=== PATIENT | male | born 1955 | race Caucasian/White ===

== ENCOUNTER 2020-11-05 21:46 | Emergency (ER) | payer MEDICARE, MEDICAID ==
[2020-11-05] MEDS ORDERED: Azithromycin 250 MG Tab PO ONE (21:47)
--- NOTE | 2020-11-05 22:19 | EDM.PDOC ---
ED HPI GENERAL MEDICAL PROBLEM - General Chief Complaint: Respiratory Problem Stated Complaint: COVID Time Seen by Provider: 11/05/20 22:10 Source of Information: Reports: Patient History Limitations: Reports: No Limitations - History of Present Illness INITIAL COMMENTS - FREE TEXT/NARRATIVE: 64-year-old male presents to the emergency department via private vehicle known diagnosis of COVID 19 secondary to being told by the nurse line to come in for evaluation. The patient reports that he developed symptoms initially approximately one week ago and was diagnosed with COVID 19 with positive test 3 days ago through [facility]. He received the [facility] antibiotic therapy yesterday. He reports that his initial symptoms were nasal congestion, mild cough, loss of taste and smell and generalized malaise with body aches and fever. He has persisted with these symptoms but he states that today he regained his sense of taste and smell and he had not really been eating that well but he ate better today than he has been. He has been taking liquids well. He has had no nausea or vomiting. He did have diarrhea during the initial portion of this illness but he has had no diarrhea for the past 3 days. He has had no weakness or dizziness. He denies any chest pain. He does report that over the past 2 days he has had increased difficulty breathing with activity. He also had a fever of 101F at home tonight. He denies any pain at present. He rates his pain as a 0/10. There are no other associated signs or symptoms. There are no other modifying factors. Onset: Other (Initial symptoms began one week ago. Increased difficulty breathing with activity began yesterday. It was as above.) Duration: Getting Worse (Possibly getting worse over the past 2 days but other elements of his illness have been improving.) Location: Reports: Other (No pain.) Quality: Reports: Other (Not applicable.) Improves with: Reports: None Worsens with: Reports: None Context: Reports: Other (As above.) Associated Symptoms: Reports: No Other Symptoms (Except as above.) Treatments INSURANCE ACTUARY: Reports: NSAIDS - Related Data Allergies Allergy/AdvReac Type Severity Reaction Status Date / Time No Known Allergies Allergy Verified 11/11/13 08:38 Home Meds: Home Meds Acai Jansen Extract [Acai Jansen] 1,000 mg PO DAILY 11/11/13 [History] Ascorbic Acid [Vitamin C] 2,000 mg PO DAILY 11/11/13 [History] Multivitamin [Multi-Vitamin Daily] 1 tab PO DAILY 11/11/13 [History] Jewell's Wort 375 mg PO DAILY 12/01/13 [History] Losartan [Cozaar] 25 mg PO DAILY 11/05/20 [History] atorvaSTATin [Lipitor] 10 mg PO DAILY 11/05/20 [History] metFORMIN [Glucophage] 500 mg PO BIDMEALS 11/05/20 [History] Past Medical History Cardiovascular History: Reports: High Cholesterol, Hypertension Endocrine/Metabolic History: Reports: Diabetes, Type II Oncologic (Cancer) History: Reports: Leukemia (Chronic lymphocytic leukemia) - Past Surgical History GI Surgical History: Reports: Hernia, Inguinal (Bilateral inguinal hernia repairs) Social & Family History - Tobacco Use Tobacco Use Status *Q: Never Tobacco User - Caffeine Use Caffeine Use: Reports: Coffee - Alcohol Use Alcohol Use History: No - Recreational Drug Use Recreational Drug Use: No - Living Situation & Occupation Occupation: Retired ED ROS GENERAL - Review of Systems Review Of Systems: See Below Constitutional: Reports: Fever, Malaise, Fatigue HEENT: Reports: Other (Nasal congestion) Respiratory: Reports: Shortness of Breath, Cough Cardiovascular: Reports: No Symptoms GI/Abdominal: Reports: No Symptoms : Reports: No Symptoms Musculoskeletal: Reports: Other (Gen. body aches.) Skin: Reports: No Symptoms Neurological: Reports: No Symptoms Psychiatric: Reports: No Symptoms Hematologic/Lymphatic: Reports: No Symptoms Immunologic: Reports: No Symptoms ED EXAM, GENERAL - Physical Exam Exam: See Below Exam Limited By: No Limitations General Appearance: Alert, WD/WN, No Apparent Distress Eye Exam: Bilateral Eye: EOMI, Normal Inspection Ears: Normal External Exam, Hearing Grossly Normal Ear Exam: Bilateral Ear: Auricle Normal Nose: No Blood, Nasal Drainage Throat/Mouth: Normal Inspection, Normal Oropharynx, Normal Voice, No Airway Compromise Head: Atraumatic, Normocephalic Neck: Normal Inspection, Supple, Non-Tender, Full Range of Motion Respiratory/Chest: No Respiratory Distress, Lungs Clear, Normal Breath Sounds, No Accessory Muscle Use Cardiovascular: Normal Peripheral Pulses, Regular Rate, Rhythm, No Gallop, No Murmur Peripheral Pulses: 2+: Radial (L), Radial (R) GI/Abdominal: Normal Bowel Sounds, Soft, Non-Tender, No Mass Back Exam: Normal Inspection, Full Range of Motion Extremities: Normal Inspection, Normal Range of Motion, Non-Tender, No Pedal Edema, Normal Capillary Refill Neurological: Alert, Oriented, CN II-XII Intact, Normal Cognition, No Motor/Sensory Deficits Psychiatric: Normal Affect Skin Exam: Warm, Dry, Intact, Normal Color, No Rash Course - Vital Signs Last Recorded V/S: Last Vital Signs Temp 36.7 C 11/05/20 22:14 Pulse 93 11/05/20 22:14 Resp 14 11/05/20 22:14 BP 152/82 H 11/05/20 22:14 Pulse Ox 96 11/05/20 22:14 - Re-Assessments/Exams Free Text/Narrative Re-Assessment/Exam: 11/05/20 22:40: Patient with Covid 19 infection which began one week ago and was diagnosed on Saturday of this last week. His O2 saturations are 96% on room air. His respiratory rate is 16. He has and drinking. He has had no vomiting. He does report shortness of breath which seems to be with activity and that has been present over the past 1-2 days and seems to have worsened. He has an O2 sat monitor at home and his saturations have been 93% or greater he did have a fever and has been having fevers he received the BAM antibody therapy yesterday. At this point, there is no dictation for any other diagnostic testing or treatment other than home treatment and symptomatic treatment. Treatment with Decadron is not recommended in this patient. He is not having any chest pain. I have discussed all this with the patient he is to continue to drink plain fluids. He is to continue taking Tylenol and ibuprofen as needed for fever or aches. He should also continue monitoring his O2 saturations at home. Since he has had the symptoms ongoing now for 7 days, will give the patient a Z-Paul. I think that this is unlikely to cause any harm and it has been anecdotally related with an improved outcome. Precautions and reasons for return to the emergency department were discussed with the patient while he was in the emergency department and were detailed in the patient's discharge instructions. Departure - Departure Time of Disposition: 22:50 Disposition: Home, Self-Care 01 Condition: Good (Stable) Clinical Impression: COVID-19 virus infection - Discharge Information Instructions: COVID-19 Frequently Asked Questions, COVID-19: How to Protect Yourself and Others - CDC Referrals: PCP,None [Primary Care Provider] - Forms: ED Department Discharge Additional Instructions: Your vital signs are all reassuring. He had a normal O2 saturation and a normal respiratory rate. Your exam was also reassuring. You appear to be well hydrated and your lung sounds were normal. Other than what you aren't doing at home already, there are really no other therapies that would help you at this time. I did give you a course of Zithromax because your symptoms have been ongoing for 7 days and if there is any bacterial infection and top of the COVID infection, these antibiotics may help. You should continue to any of fluids. You should continue to rest. You should continue to monitor your O2 saturations at home and as long as they are 90-91% you should remain at home. There are that you should come back to the emergency department for oxygen saturations of less than 90%, severe weakness, unrelenting vomiting, chest pain, fast heart rate, worsening shortness of breath or any other concerning sign or symptom. Sepsis Event Note (ED) - Evaluation Sepsis Screening Result: No Definite Risk - Focused Exam Vital Signs: Vital Signs Temp Pulse Resp BP Pulse Ox 11/05/20 22:14 36.7 C 93 14 152/82 H 96 11/05/20 21:57 36.7 C 106 H 16 186/105 H 96
== END 2020-11-05 23:08 | disposition home or self-care (01) ==
LOC: FB.ED 21:46
DX: U07.1 COVID-19 (principal); E78.00 Pure hypercholesterolemia, unspecified; I10 Essential (primary) hypertension; E11.9 Type 2 diabetes mellitus without complications; Z79.84 Long term (current) use of oral hypoglycemic drugs; Z79.899 Other long term (current) drug therapy
CPT/HCPCS: 99283; A9270

== ENCOUNTER 2021-01-14 12:25 | Emergency (ER) | payer MEDICARE, MEDICAID ==
[2021-01-14] MEDS ORDERED: Sodium Chloride 0.9% 1,000 ML IV ONE (12:37)
[2021-01-14] MEDS ORDERED: Metoclopramide 10 MG/2 ML SDV IVPUSH ONE (12:38)
--- NOTE | 2021-01-14 13:21 | EDM.PDOC ---
ED HPI GENERAL MEDICAL PROBLEM - General Stated Complaint: HIGH BP/DIZZINESS Time Seen by Provider: 01/14/21 12:25 Source of Information: Reports: Patient History Limitations: Reports: No Limitations - History of Present Illness INITIAL COMMENTS - FREE TEXT/NARRATIVE: c/o dizziness pt states he awoke 3d ago and was mild dizzy that day and the next on awakening, felt okay the rest of the day today he was quite dizzy on awakening, had to sit for awhile, barely made it to the bathroom, had N, no V felt "off" ate an egg sandwich for bfast felt better and later went to the gym, worked out for one hour, felt dizzy on some of the equipment and then when he left went to Urgent Care, with Magan maneuvers he was very dizzy and began to vomit given Zofran ODT 4 mg SL and sent to ED not been dizzy before no h/o CV or pul p-roblems no pain, no HOLLIDAY, no CP SH: lives with gfriend who is not ill, no alc, never smoked, 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 PMH: had COVID 2m ago, had fever x 3d, says he never was ill, never had htn, DM x 5y PCP: Dr Ruiz, last saw 6m ago, no change in meds then - Related Data Allergies Allergy/AdvReac Type Severity Reaction Status Date / Time No Known Allergies Allergy Verified 01/14/21 12:35 Home Meds: Home Meds Ascorbic Acid [Vitamin C] 2,000 mg PO BEDTIME 11/11/13 [History] Multivitamin [Multi-Vitamin Daily] 1 tab PO BEDTIME 11/11/13 [History] Losartan [Cozaar] 25 mg PO DAILY 11/05/20 [History] atorvaSTATin [Lipitor] 10 mg PO DAILY 11/05/20 [History] metFORMIN [Glucophage] 500 mg PO BIDMEALS 11/05/20 [History] Past Medical History Cardiovascular History: Reports: High Cholesterol, Hypertension Endocrine/Metabolic History: Reports: Diabetes, Type II Oncologic (Cancer) History: Reports: Leukemia (Chronic lymphocytic leukemia) - Past Surgical History GI Surgical History: Reports: Hernia, Inguinal (Bilateral inguinal hernia repairs) Social & Family History - Family History Family Medical History: No Pertinent Family History - Caffeine Use Caffeine Use: Reports: Coffee - Living Situation & Occupation Occupation: Retired ED ROS GENERAL - Review of Systems Review Of Systems: See Below Constitutional: Reports: No Symptoms HEENT: Reports: No Symptoms Respiratory: Reports: No Symptoms Cardiovascular: Reports: No Symptoms Endocrine: Reports: No Symptoms GI/Abdominal: Reports: No Symptoms : Reports: No Symptoms Musculoskeletal: Reports: No Symptoms Skin: Reports: No Symptoms Neurological: Reports: No Symptoms Psychiatric: Reports: No Symptoms Hematologic/Lymphatic: Reports: No Symptoms Immunologic: Reports: No Symptoms ED EXAM, DIZZINESS - Physical Exam Exam: See Below Exam Limited By: No Limitations General Appearance: Alert, WD/WN, No Apparent Distress, Other (pleasant, alert, good eye contact, mildly ill, mild sob, no cough, borderline tachy) Eye Exam: Bilateral Eye: EOMI, PERRL Ears: Hearing Grossly Normal Nose: Normal Inspection, Normal Mucosa, No Blood Throat/Mouth: Normal Inspection, Normal Lips, Normal Oropharynx, Normal Voice, No Airway Compromise Head Exam: Atraumatic, Normocephalic Neck: Normal Inspection, Supple, Non-Tender, Full Range of Motion. No: Lymphadenopathy (R), Lymphadenopathy (L) Respiratory/Chest: No Respiratory Distress, Lungs Clear, Normal Breath Sounds, No Accessory Muscle Use, Chest Non-Tender Cardiovascular: Other (borderline tachy, 2/6 FRANCIS at [facility], no S3/S4) GI/Abdominal: Soft, Non-Tender, No Distention Neurological: Alert, Normal Mood/Affect, CN II-XII Intact, No Motor/Sensory Deficits, Oriented x 3 Back Exam: Normal Inspection, Full Range of Motion, NT Extremities: Normal Inspection, Normal Range of Motion, Non-Tender, No Pedal Edema Psychiatric: Normal Affect, Normal Mood Skin Exam: Warm, Dry, Intact, Normal Color, No Rash Course - Vital Signs Last Recorded V/S: Last Vital Signs Temp 36.6 C 01/14/21 12:35 Pulse 97 01/14/21 12:35 Resp 20 01/14/21 12:35 BP 181/95 H 01/14/21 12:35 Pulse Ox 97 01/14/21 12:35 Orthostatic Blood Pressure [ 178/107 Standing] Orthostatic Blood Pressure [ 159/93 Sitting] Orthostatic Blood Pressure [ 159/89 Supine] - Orders/Labs/Meds Orders: Active Orders 24 hr Category Date Time Status EKG Documentation Completion [RC] ASDIRECTED Care 01/14/21 12:37 Active Orthostatic Vital Signs [RC] ASDIRECTED Care 01/14/21 12:47 Active Ang Head [CT] Stat Exams 01/14/21 14:08 Ordered Ang Neck [CT] Stat Exams 01/14/21 14:10 Ordered Chest 2V [CR] Stat Exams 01/14/21 12:44 Stop Req Chest Abdomen Pelvis w Cont [CT] Stat Exams 01/14/21 14:10 Ordered EKG 12 Lead [EK] Routine Ther 01/14/21 12:36 Ordered Labs: Laboratory Tests 01/14/21 01/14/21 01/14/21 Range/Units 12:55 12:55 12:55 WBC 13.2 H (3.2-10.1) x10-3/uL RBC 5.17 (3.90-5.90) x10(6)uL Hgb 14.7 (12.9-17.7) g/dL Hct 44.4 (38.3-50.1) % MCV 85.8 (80.8-98.7) fL MCH 28.5 (27.0-33.3) pg MCHC 33.2 (28.7-35.3) g/dL RDW 14.6 (12.4-15.0) % Plt Count 127 (117-477) x10(3)uL MPV 8.7 (6.7-11.0) fL Add Manual Diff Yes Neutrophils % (Manual) 45 L (46-82) % Lymphocytes % (Manual) 53 H (13-37) % Monocytes % (Manual) 2 L (4-12) % Polychromasia D-Dimer, Quantitative (0.0-0.59) mg/LFEU Sodium 142 (135-145) mmol/L Potassium 3.9 (3.5-5.3) mmol/L Chloride 105 (100-110) mmol/L Carbon Dioxide 27 (21-32) mmol/L BUN 19 H (7-18) mg/dL Creatinine 1.0 (0.70-1.30) mg/dL Est Cr Clr Drug Dosing TNP Estimated GFR (MDRD) > 60 (>60) BUN/Creatinine Ratio 19.0 (9-20) Glucose 175 H (80-116) mg/dL Lactic Acid (0.4-2.0) mmol/L Calcium 9.5 (8.6-10.2) mg/dL Magnesium (1.8-2.5) mg/dL Total Bilirubin 0.7 (0.1-1.3) mg/dL AST 28 H (5-25) IU/L ALT 66 H (12-36) U/L Alkaline Phosphatase 101 (56-112) IU/L Lactate Dehydrogenase (85-227) U/L Troponin I 4.1 (4.0-60.3) pg/mL C-Reactive Protein 0.3 L (0.5-0.9) mg/dL Total Protein 6.5 (6.0-8.0) g/dL Albumin 4.0 (3.2-4.6) g/dL Globulin 2.5 g/dL Albumin/Globulin Ratio 1.6 TSH, Ultra Sensitive 2.72 (0.36-3.74) IU/mL Urine Color (YELLOW) Urine Appearance (CLEAR) Urine pH (5.0-6.5) Ur Specific Monroe (1.010-1.025) Urine Protein (NEGATIVE) mg/dL Urine Glucose (UA) (NORMAL) mg/dL Urine Ketones (NEGATIVE) mg/dL Urine Occult Blood (NEGATIVE) Urine Nitrite (NEGATIVE) Urine Bilirubin (NEGATIVE) Urine Urobilinogen (NEGATIVE) mg/dL Ur Leukocyte Esterase (NEGATIVE) Urine WBC (0-5) Ur Squamous Epith Cells (NS,R,O) Urine Bacteria (NS) 01/14/21 01/14/21 01/14/21 Range/Units 12:55 12:55 12:55 WBC (3.2-10.1) x10-3/uL RBC (3.90-5.90) x10(6)uL Hgb (12.9-17.7) g/dL Hct (38.3-50.1) % MCV (80.8-98.7) fL MCH (27.0-33.3) pg MCHC (28.7-35.3) g/dL RDW (12.4-15.0) % Plt Count (117-477) x10(3)uL MPV (6.7-11.0) fL Add Manual Diff Neutrophils % (Manual) (46-82) % Lymphocytes % (Manual) (13-37) % Monocytes % (Manual) (4-12) % Polychromasia D-Dimer, Quantitative < 0.19 (0.0-0.59) mg/LFEU Sodium (135-145) mmol/L Potassium (3.5-5.3) mmol/L Chloride (100-110) mmol/L Carbon Dioxide (21-32) mmol/L BUN (7-18) mg/dL Creatinine (0.70-1.30) mg/dL Est Cr Clr Drug Dosing Estimated GFR (MDRD) (>60) BUN/Creatinine Ratio (9-20) Glucose (80-116) mg/dL Lactic Acid 1.3 (0.4-2.0) mmol/L Calcium (8.6-10.2) mg/dL Magnesium 1.8 (1.8-2.5) mg/dL Total Bilirubin (0.1-1.3) mg/dL AST (5-25) IU/L ALT (12-36) U/L Alkaline Phosphatase (56-112) IU/L Lactate Dehydrogenase (85-227) U/L Troponin I (4.0-60.3) pg/mL C-Reactive Protein (0.5-0.9) mg/dL Total Protein (6.0-8.0) g/dL Albumin (3.2-4.6) g/dL Globulin g/dL Albumin/Globulin Ratio TSH, Ultra Sensitive (0.36-3.74) IU/mL Urine Color (YELLOW) Urine Appearance (CLEAR) Urine pH (5.0-6.5) Ur Specific Monroe (1.010-1.025) Urine Protein (NEGATIVE) mg/dL Urine Glucose (UA) (NORMAL) mg/dL Urine Ketones (NEGATIVE) mg/dL Urine Occult Blood (NEGATIVE) Urine Nitrite (NEGATIVE) Urine Bilirubin (NEGATIVE) Urine Urobilinogen (NEGATIVE) mg/dL Ur Leukocyte Esterase (NEGATIVE) Urine WBC (0-5) Ur Squamous Epith Cells (NS,R,O) Urine Bacteria (NS) 01/14/21 01/14/21 Range/Units 13:50 13:55 WBC (3.2-10.1) x10-3/uL RBC (3.90-5.90) x10(6)uL Hgb (12.9-17.7) g/dL Hct (38.3-50.1) % MCV (80.8-98.7) fL MCH (27.0-33.3) pg MCHC (28.7-35.3) g/dL RDW (12.4-15.0) % Plt Count (117-477) x10(3)uL MPV (6.7-11.0) fL Add Manual Diff Neutrophils % (Manual) (46-82) % Lymphocytes % (Manual) (13-37) % Monocytes % (Manual) (4-12) % Polychromasia D-Dimer, Quantitative (0.0-0.59) mg/LFEU Sodium (135-145) mmol/L Potassium (3.5-5.3) mmol/L Chloride (100-110) mmol/L Carbon Dioxide (21-32) mmol/L BUN (7-18) mg/dL Creatinine (0.70-1.30) mg/dL Est Cr Clr Drug Dosing Estimated GFR (MDRD) (>60) BUN/Creatinine Ratio (9-20) Glucose (80-116) mg/dL Lactic Acid (0.4-2.0) mmol/L Calcium (8.6-10.2) mg/dL Magnesium (1.8-2.5) mg/dL Total Bilirubin (0.1-1.3) mg/dL AST (5-25) IU/L ALT (12-36) U/L Alkaline Phosphatase (56-112) IU/L Lactate Dehydrogenase 191 (85-227) U/L Troponin I (4.0-60.3) pg/mL C-Reactive Protein (0.5-0.9) mg/dL Total Protein (6.0-8.0) g/dL Albumin (3.2-4.6) g/dL Globulin g/dL Albumin/Globulin Ratio TSH, Ultra Sensitive (0.36-3.74) IU/mL Urine Color Yellow (YELLOW) Urine Appearance Clear (CLEAR) Urine pH 6.0 (5.0-6.5) Ur Specific [place] 1.025 (1.010-1.025) Urine Protein Negative (NEGATIVE) mg/dL Urine Glucose (UA) Normal (NORMAL) mg/dL Urine Ketones 15 H (NEGATIVE) mg/dL Urine Occult Blood Negative (NEGATIVE) Urine Nitrite Negative (NEGATIVE) Urine Bilirubin Negative (NEGATIVE) Urine Urobilinogen Normal (NEGATIVE) mg/dL Ur Leukocyte Esterase Negative (NEGATIVE) Urine WBC 0-5 (0-5) Ur Squamous Epith Cells Occasional (NS,R,O) Urine Bacteria Few H (NS) Meds: Medications Discontinued Medications Generic Name Dose Route Start Last Admin Trade Name Oren PRN Reason Stop Dose Admin Sodium Chloride 1,000 mls @ 999 mls/hr 01/14/21 12:37 01/14/21 13:00 Normal Saline IV 01/14/21 13:37 999 mls/hr .BOLUS ONE Administration Levofloxacin/Dextrose 750 mg/ 150 mls @ 100 mls/hr 01/14/21 16:17 01/14/21 16:26 Premix IV 01/14/21 17:46 100 mls/hr ONETIME ONE Administration Iopamidol 80 ml 01/14/21 14:35 01/14/21 14:56 Iopamidol 755 Mg/Ml 100 Ml Bottle IV 01/14/21 14:36 80 ml . DIRECTED ONE Administration Metoclopramide HCl 10 mg 01/14/21 12:38 01/14/21 13:02 Metoclopramide 10 Mg/2 Ml Sdv IVPUSH 01/14/21 12:39 10 mg ONETIME ONE Administration - Re-Assessments/Exams Free Text/Narrative Re-Assessment/Exam: 01/14/21 14:31 with pt's permission, Grace Donnelly called, dtr-in-law pt has 3 sons Grace reports no change in health status that she is aware of labs printed from clinic by Dr [facility] who accessed records LFTS have trended up slightly in past 10m, AST/ALT 19/30 from 10m ago, 24/49 from 4m ago, 28 now not orthostatic here has h/o CLL with baseline WBC in low teens, CLL dx 2011, last received chemo 4y ago last A1C 5.8, no lunch, now with BS 175 for unclear reason with pt asleep here vs HR 103, PO 90% RA, RR 23, BP 154/99 given no meds here except 1 liter NS, SG 1.025, ketones 15 mg/dl, no cells in urine trop neg, EKG neg except mild flat/rounding of T-waves (K & Mg wnl) CRP 0.3, suggesting no residual COVID CxR 2y ago with mild peribronchial cuffing no wt change in past yr per pt 01/14/21 16:33 call placed to [facility], Dr Browne hospitalized to call me back pt has remained with abnormal vital signs (HR 103, RR 21, PO 94-95%, BP 157/87), mild infiltrate at RLL is suggestive of possible pneumonia in context of pt who is immunocompromised pt told he had a "black lung" in the past, never on HFA, not seen a edge burnisher uppers did have COVID 2m ago altho CRP and d-dimer are neg now, suggesting no residual inflammation from COVID however he may be desat'ing at night, did have PO 90% here when asleep, may need nighttime O2, would benefit from overnight oximetry 01/14/21 18:[address] Ceballos, on-call stroke neurologist for [facility], he did not think it was likely that severe stenosis of L posterior cerebral artery was likely cause of vertigo in context of no L visual field loss, pt had no visual field cuts by hx or confrontation Dr Dr Rueda hospitalist who accepted pt in transfer to [facility] pt remains tachycardia at 105-115 and tachypneic at 21-22 even after 1 liter NS, pt without anxiety or physiologic evidence of stress, BP remains elevated at 185/102 currently, still no good explanation for abnormal vital signs pt would benefit from a neuro consult with hx and PE from neurologist to r/o posterior circulation ischemia, which is still a consideration even in absence of field cut these issues were d/w dtr-in-law, Scott Donnelly ([phone]), who is DON for ED here. She is in agreement with transfer for further evaluation of vertigo, posterior circulation concerns and persistent abnormal vital signs. 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, Hypoxia, Tachypnea, Tachycardia, CLL (chronic lymphocytic leukemia), Immunocompromised, Splenomegaly, Retroperitoneal lymphadenopathy, Right lower lobe pulmonary infiltrate, Elevated liver function tests, Ketonuria, Mild dehydration - Discharge Information *PRESCRIPTION DRUG MONITORING PROGRAM REVIEWED*: Not Applicable *COPY OF PRESCRIPTION DRUG MONITORING REPORT IN PATIENT MOOSE: Not Applicable Referrals: Matheus Nicholson MD [Primary Care Provider] - Sepsis Event Note (ED) - Evaluation Sepsis Screening Result: No Definite Risk - Focused Exam Vital Signs: Vital Signs Temp Pulse Resp BP Pulse Ox 01/14/21 12:35 36.6 C 97 20 181/95 H 97 - My Orders Last 24 Hours: My Active Orders 01/14/21 12:36 EKG 12 Lead [EK] Routine 01/14/21 12:37 EKG Documentation Completion [RC] ASDIRECTED 01/14/21 12:44 Chest 2V [CR] Stat 01/14/21 12:47 Orthostatic Vital Signs [RC] ASDIRECTED 01/14/21 14:08 Ang Head [CT] Stat 01/14/21 14:10 Ang Neck [CT] Stat Chest Abdomen Pelvis w Cont [CT] Stat - Assessment/Plan Last 24 Hours: My Active Orders 01/14/21 12:36 EKG 12 Lead [EK] Routine 01/14/21 12:37 EKG Documentation Completion [RC] ASDIRECTED 01/14/21 12:44 Chest 2V [CR] Stat 01/14/21 12:47 Orthostatic Vital Signs [RC] ASDIRECTED 01/14/21 14:08 Ang Head [CT] Stat 01/14/21 14:10 Ang Neck [CT] Stat Chest Abdomen Pelvis w Cont [CT] Stat
[2021-01-14] MEDS ORDERED: Iopamidol 755 Mg/ML 100 ML Bottle IV ONE (14:35)
[2021-01-14] MEDS ORDERED: Levofloxacin/Dextrose 5%-Water 750 MG in Premix Bag 1 BAG IV ONE (16:17)
[2021-01-14] MEDS ORDERED: Aspirin 81 MG Tab.Chew PO ONE (18:22)
== END 2021-01-14 18:35 ==
LOC: FB.ED 12:25
DX: E86.0 Dehydration (principal); I66.22 Occlusion and stenosis of left posterior cerebral artery; R09.02 Hypoxemia; R06.82 Tachypnea, not elsewhere classified; C91.10 Chronic lymphocytic leukemia of B-cell type not having achieved remission; R91.8 Other nonspecific abnormal finding of lung field; R79.89 Other specified abnormal findings of blood chemistry; R82.4 Acetonuria; R59.0 Localized enlarged lymph nodes; D84.9 Immunodeficiency, unspecified; R16.1 Splenomegaly, not elsewhere classified; E78.00 Pure hypercholesterolemia, unspecified; I10 Essential (primary) hypertension; E11.9 Type 2 diabetes mellitus without complications; Z79.84 Long term (current) use of oral hypoglycemic drugs; Z79.899 Other long term (current) drug therapy
CPT/HCPCS: 36415; 70496; 70498; 71260; 74177; 80053; 81001; 83605; 83615; 83735; 84443; 84484; 85025; 85379; 86140; 93005; 96365; 96375; 99285-25; A9270-GY; J1956; J2765; J7030; Q9967

== ENCOUNTER 2024-07-03 07:41 | Day surgery (SDC) | payer MEDICARE, MEDICAID ==
[2024-07-03] MEDS ORDERED: Lidocaine 2% 100 MG/5 ML Syringe IVPUSH ONE (07:42)
[2024-07-03] MEDS ORDERED: Propofol 200 MG/20 ML SDV IV ONE (07:42)
[2024-07-03] MEDS ORDERED: Sodium Chloride 0.9% 10 ML Syringe FLUSH PRN (07:45)
[2024-07-03] MEDS: Lactated Ringers 1,000 ML IV SCH (08:42)
[2024-07-03] MEDS: Simethicone Drops 40 MG/0.6 ML 30 ML Bottle ONE (09:40)
== END 2024-07-03 11:15 | disposition home or self-care (01) ==
LOC: FB.SDS 07:41
PROVIDERS: ATTEND Surgery
DX: Z12.11 Encounter for screening for malignant neoplasm of colon (principal); D12.2 Benign neoplasm of ascending colon; D12.6 Benign neoplasm of colon, unspecified; Z80.0 Family history of malignant neoplasm of digestive organs; I10 Essential (primary) hypertension; E11.9 Type 2 diabetes mellitus without complications; Z79.84 Long term (current) use of oral hypoglycemic drugs; Z79.85 Long-term (current) use of injectable non-insulin antidiabetic drugs; Z79.82 Long term (current) use of aspirin; Z79.899 Other long term (current) drug therapy
CPT/HCPCS: 82947; 88304; 88305; A9270-GY; J2704; J7120